=== PATIENT | female | born 1990 | race Caucasian/White ===

== ENCOUNTER 2019-02-09 07:29 | Observation (INO) ==
[2019-02-09] MEDS ORDERED: ACETAMINOPHEN 325 MG TABLET PO PRN (08:56)
[2019-02-09] MEDS ORDERED: ONDANSETRON 4 MG/2 ML VIAL IV PRN (08:56)
[2019-02-09] MEDS ORDERED: MORPHINE 4 MG/1 ML VIAL IV PRN (08:56)
[2019-02-09] MEDS ORDERED: LACTATED RINGERS 1,000 ML IV ONE (08:59)
[2019-02-09] MEDS ORDERED: PROMETHAZINE INJ 25 MG in SODIUM CHLORIDE 0.9% 50 ML IV PRN (09:02)
[2019-02-09] MEDS ORDERED: HYDROmorphone 2 MG/1 ML VIAL IV PRN (10:42)
[2019-02-09] MEDS ORDERED: KETOROLAC 30 MG/1 ML VIAL IV ONE (10:42)
[2019-02-09] MEDS ORDERED: INFLUENZA VIRUS VACCINE 0.5 ML SYRINGE IM ONE (11:11)
[2019-02-09 11:51] LABS: Apearance,Urine Slightly Hazy (Clear); Bacteria,Urine Occasional /HPF (Few); Bilirubin,Urine Negative (Negative); Blood, Urine Moderate mg/dL (Negative); Glucose,Urine (UA) Negative (Negative); Ketones,Urine Negative (Negative); Mucus,Urine Occasional /LPF (Occasional); Nitrite,Urine Negative (Negative); Protein,Urine Negative; RBC,Urine 6 /HPF (0-4); Squamous Epithelial Cell,Urine Occasional /HPF (0-10); Urine Color Yellow (Yellow); Urine Urobilinogen < 2.0 EU/DL (0.2-1.0); WBC,Urine 1 /HPF (0-6)
[2019-02-09] MEDS: PANTOPRAZOLE 40 MG TABLET PO SCH (11:56)
[2019-02-09] MEDS: LACTATED RINGERS 1,000 ML IV SCH ×2 (12:53→20:05)
[2019-02-09] MEDS: metroNIDAZOLE INJ 500 MG in PREMIX 1 EACH IV SCH ×2 (12:54→21:22)
[2019-02-09] MEDS: CIPROFLOXACIN INJ 400 MG in PREMIX 1 EACH IV SCH (14:28)
[2019-02-10] MEDS: LACTATED RINGERS 1,000 ML IV SCH ×2 (00:05→08:29)
[2019-02-10] MEDS: CIPROFLOXACIN INJ 400 MG in PREMIX 1 EACH IV SCH (03:19)
[2019-02-10 05:24] LABS: Basophils % 0.3 % (0.0-0.8); Eosinophils # 0.1 10*3/uL (0.0-0.87); Eosinophils % 1.8 % (0.00-10.9); Hematocrit 36.8 VOL% (35.7-47.0); Immature Granulocytes % 0.3 %; Immature Granulocytes Absolute 0.01 #; Lymphocytes # 1.6 10*3/uL (1.4-4.0); Lymphocytes % 41.3 % (21.3-54.2); Mean Corpuscular HGB Conc 32.6 GM/DL (32-36); Mean Corpuscular Volume 92.9 FL (87-102); Mean Platelet Volume 9.3 FL (9.6-12.0); Monocytes % 9.2 % (1.7-12.7); Neutrophils % 47.1 % (38.7-73.9); Platelet Count 195 T/CUMM (130-400); Red Blood Count 3.96 MC/CUMM (3.8-5.5); Red Cell Distribution Width 12.2 % (9.3-17.3); White Blood Count 3.9 T/CUMM (4-12)
[2019-02-10 05:52] LABS: Albumin 2.6 G/DL (3.4-5.0); Bilirubin,Total 0.4 MG/DL (0.2-1.0); Calcium 8.2 MG/DL (8.5-10.1); Total Protein 6.1 G/DL (6.4-8.3)
[2019-02-10] MEDS: metroNIDAZOLE INJ 500 MG in PREMIX 1 EACH IV SCH (05:56)
[2019-02-10] MEDS ORDERED: LOPERAMIDE 2 MG CAPSULE PO ONE (07:56)
[2019-02-10 08:10] VITALS: BP 107/54
[2019-02-10] MEDS: PANTOPRAZOLE 40 MG TABLET PO SCH (09:04)
== END 2019-02-10 10:27 | disposition home or self-care (01) ==
LOC: N.2W
PROVIDERS: ADMIT Hospitalist; ATTEND Hospitalist

== ENCOUNTER 2020-01-30 21:50 | Inpatient (IN) ==
[2020-01-30] MEDS ORDERED: ONDANSETRON 4 MG/2 ML VIAL IV PRN (22:36)
[2020-01-30] MEDS ORDERED: LACTATED RINGERS 1,000 ML IV SCH (23:00)
[2020-01-30 23:04] LABS: Basophils % 0.2 % (0.0-0.8); Eosinophils # 0.1 10*3/uL (0.0-0.87); Eosinophils % 0.7 % (0.00-10.9); Hematocrit 31.8 VOL% (35.7-47.0); Hemoglobin 10.7 GM/DL (12.0-16.0); Immature Granulocytes % 0.3 %; Immature Granulocytes Absolute 0.04 #; Lymphocytes # 2.4 10*3/uL (1.4-4.0); Lymphocytes % 20.6 % (21.3-54.2); Mean Corpuscular HGB Conc 33.6 GM/DL (32-36); Mean Corpuscular Volume 88.8 FL (87-102); Mean Platelet Volume 9.4 FL (9.6-12.0); Monocytes % 3.8 % (1.7-12.7); Neutrophils % 74.4 % (38.7-73.9); Platelet Count 265 T/CUMM (130-400); Red Blood Count 3.58 MC/CUMM (3.8-5.5); Red Cell Distribution Width 13.8 % (9.3-17.3); White Blood Count 11.8 T/CUMM (4-12)
[2020-01-31 07:05] LABS: Bacteria,Urine Occasional /HPF (Few); Bilirubin,Urine Negative (Negative); Blood, Urine Negative (Negative); Glucose,Urine (UA) Negative (Negative); Ketones,Urine Negative (Negative); Nitrite,Urine Negative (Negative); Protein,Urine Negative; Urine Appearance CLEAR (Clear); Urine Color Yellow (Yellow); Urine Specific Gravity 1.008 (1.001-1.035)
[2020-01-31] MEDS ORDERED: diphenhydrAMINE 50 MG/1 ML VIAL IV PRN ×2 (09:18)
[2020-01-31] MEDS ORDERED: PROMETHAZINE 25 MG/1 ML VIAL IM ONE (09:18)
[2020-01-31] MEDS ORDERED: CITRIC ACID/SODIUM CITRATE 30 ML UDCUP PO ONE (09:18)
[2020-01-31] MEDS ORDERED: hydrOXYzine HCL 25 MG/1 ML VIAL IM PRN (09:18)
[2020-01-31] MEDS ORDERED: FAMOTIDINE 20 MG/2 ML VIAL IV ONE (09:18)
[2020-01-31] MEDS ORDERED: LACTATED RINGERS 1,000 ML IV ONE ×2 (09:18→18:53)
[2020-01-31] MEDS ORDERED: ePHEDrine 50 MG/ML VIAL IV PRN (09:18)
[2020-01-31] MEDS ORDERED: NALOXONE 0.4 MG/ML VIAL IV PRN (09:18)
[2020-01-31] MEDS ORDERED: ONDANSETRON 4 MG/2 ML VIAL IV ONE (09:18)
[2020-01-31] MEDS ORDERED: fentaNYL 2 MCG/ROPIV 0.2% EPID 100 ML EPIDURAL SCH (09:30)
[2020-01-31] MEDS ORDERED: MEPERIDINE 50 MG/1 ML VIAL IV PRN (09:30)
[2020-01-31] MEDS ORDERED: MEPERIDINE 50 MG/1 ML VIAL ONE (09:33)
[2020-01-31] MEDS ORDERED: OXYTOCIN/LR 20 UNIT/1,000 ML BAG IV SCH (10:30)
[2020-01-31 15:36] LABS: Bilirubin,Urine Negative (Negative); Blood, Urine Negative (Negative); Glucose,Urine (UA) Negative (Negative); Ketones,Urine Negative (Negative); Mucus,Urine Occasional /LPF (Occasional); Nitrite,Urine Negative (Negative); Protein,Urine Negative; RBC,Urine 1 /HPF (0-4); Urine Appearance CLEAR (Clear); Urine Color Yellow (Yellow); Urine Specific Gravity 1.012 (1.001-1.035); Urine Urobilinogen < 2.0 EU/DL (0.2-1.0); WBC,Urine 1 /HPF (0-6)
[2020-01-31] MEDS ORDERED: METHYLERGONOVINE 0.2 MG/1 ML AMP ONE ×2 (18:04→18:28)
[2020-01-31] MEDS ORDERED: miSOPROStoL 200 MCG TABLET ONE ×2 (18:04→18:27)
[2020-01-31] MEDS ORDERED: ceFAZolin 3,000 MG in SYRINGE 1 EACH IV ONE (18:05)
[2020-01-31] MEDS ORDERED: LIDOCAINE MPF 2% /EPI 20 ML VIAL ONE (18:15)
[2020-01-31] MEDS ORDERED: TRANEXAMIC ACID 1,000 MG/10 ML VIAL ONE (18:27)
[2020-01-31] MEDS ORDERED: OXYTOCIN/LR 20 UNIT/1,000 ML BAG IV ONE ×2 (18:28→19:21)
[2020-01-31] MEDS ORDERED: CARBOPROST TROMETHAMINE 250 MCG/ML AMP IM ONE (18:28)
[2020-01-31] MEDS ORDERED: miSOPROStoL 200 MCG TABLET VAG ONE (18:45)
[2020-01-31] MEDS ORDERED: HYDROmorphone 2 MG/1 ML VIAL ONE (18:49)
[2020-01-31] MEDS ORDERED: PROMETHAZINE 25 MG/1 ML VIAL ONE (18:53)
[2020-01-31] MEDS ORDERED: ONDANSETRON 4 MG/2 ML VIAL ONE (18:53)
[2020-01-31] MEDS ORDERED: KETOROLAC 30 MG/1 ML VIAL ONE (18:53)
[2020-01-31 18:54] LABS: Cord Arterial Blood HCO3 20.5 MMOL/L
[2020-01-31 18:57] LABS: Cord Venous Blood HCO3 21.3 MMOL/L; Cord Venous Blood PCO2 47.6 MMHG; Cord Venous Blood PO2 16.8
[2020-01-31] MEDS ORDERED: ACETAMINOPHEN 325 MG TABLET PO PRN (19:21)
[2020-01-31] MEDS ORDERED: BISACODYL 10 MG SUPP RECTAL PRN (19:21)
[2020-01-31] MEDS ORDERED: LANOLIN 50% CREAM 0.3 OZ TUBE TOP PRN (19:21)
[2020-01-31] MEDS ORDERED: BENZOCAINE 20%/MENTHOL 0.5% SPRAY 56 GM CAN TOP PRN (19:21)
[2020-01-31] MEDS ORDERED: ONDANSETRON 4 MG/2 ML VIAL IV PRN (19:21)
[2020-01-31] MEDS ORDERED: WITCH HAZEL PADS 100/JAR TOP PRN (19:21)
[2020-01-31] MEDS ORDERED: oxyCODONE/ACETAMINOPHEN 5-325 MG TABLET PO PRN ×2 (19:21)
[2020-01-31] MEDS ORDERED: HYDROCORTISONE 2.5% RECTAL CREAM 30 GM TUBE TOP PRN (19:21)
[2020-01-31] MEDS ORDERED: DIPH/TET/ACEL PERT BOOSTER VACCINE 0.5 ML VIAL IM ONE (19:21)
[2020-01-31] MEDS ORDERED: RHO(D) IMMUNE GLOBULIN 300 MCG SYRINGE IM ONE (19:21)
[2020-01-31] MEDS ORDERED: MEASLES/MUMPS/RUBELLA VACCINE 0.5 ML VIAL SUBCUT ONE (19:21)
[2020-01-31] MEDS: DOCUSATE SODIUM 100 MG CAPSULE PO SCH (23:47)
[2020-02-01] MEDS: KETOROLAC 30 MG/1 ML VIAL IV PRN ×2 (00:37→06:42)
[2020-02-01] MEDS: ceFAZolin 1,000 MG in SYRINGE 1 EACH IV SCH ×2 (01:15→10:25)
[2020-02-01 05:28] LABS: Basophils % 0.2 % (0.0-0.8); Eosinophils % 0.3 % (0.00-10.9); Hematocrit 30.2 VOL% (35.7-47.0); Hemoglobin 9.8 GM/DL (12.0-16.0); Immature Granulocytes % 0.5 %; Immature Granulocytes Absolute 0.06 #; Lymphocytes # 1.8 10*3/uL (1.4-4.0); Lymphocytes % 16.5 % (21.3-54.2); Mean Corpuscular HGB Conc 32.5 GM/DL (32-36); Mean Corpuscular Volume 92.4 FL (87-102); Mean Platelet Volume 9.4 FL (9.6-12.0); Monocytes % 4.7 % (1.7-12.7); Neutrophils % 77.8 % (38.7-73.9); Platelet Count 220 T/CUMM (130-400); Red Blood Count 3.27 MC/CUMM (3.8-5.5); White Blood Count 11.2 T/CUMM (4-12)
[2020-02-01] MEDS: LEVOTHYROXINE 50 MCG TABLET PO SCH (06:47)
[2020-02-01] MEDS ORDERED: MAGNESIUM HYDROXIDE SUSP 30 ML UDCUP PO PRN (07:45)
[2020-02-01] MEDS: DOCUSATE SODIUM 100 MG CAPSULE PO SCH ×2 (10:26→19:30)
[2020-02-01] MEDS: SIMETHICONE CHEW 80 MG TABLET PO PRN ×2 (10:26→19:30)
[2020-02-01] MEDS: IBUPROFEN 800 MG TABLET PO PRN ×2 (13:35→19:30)
[2020-02-01] MEDS ORDERED: RHO(D) IMMUNE GLOBULIN 300 MCG SYRINGE IM ONE (16:11)
[2020-02-01] MEDS ORDERED: FUROSEMIDE 20 MG TABLET PO ONE (22:01)
[2020-02-02] MEDS: IBUPROFEN 800 MG TABLET PO PRN ×2 (01:51→10:13)
[2020-02-02] MEDS: LEVOTHYROXINE 50 MCG TABLET PO SCH (06:35)
[2020-02-02 08:00] VITALS: BP 128/73
[2020-02-02] MEDS: DOCUSATE SODIUM 100 MG CAPSULE PO SCH ×2 (08:39→10:17)
[2020-02-02] MEDS ORDERED: FUROSEMIDE 40 MG TABLET PO ONE (09:00)
== END 2020-02-02 13:30 | disposition home or self-care (01) | DRG 788 ==
LOC: N.LDOUT 21:50 → N.LD 22:07 → N.OB 01-31 22:50
PROVIDERS: ADMIT Specialist; ATTEND Specialist
PROC: LDCSECT (ICD-10-PCS; 2020-01-31 18:00)